=== PATIENT | male | born 1970 | race African-American/Black ===

== ENCOUNTER 2020-10-31 22:29 | Emergency (ER) | payer OTHER ==
[2020-10-31 22:34] VITALS: BP 137/76; PULSE 99; TEMP 98; BMI 30.1
== END 2020-11-01 00:18 | disposition home or self-care (01) ==
LOC: JERFT 22:29
DX: M79.675 Pain in left toe(s) (principal)
CPT/HCPCS: 73660-TC-LT-FY; 99283-25

== ENCOUNTER 2021-03-19 12:45 | Emergency (ER) | payer OTHER ==
[2021-03-19 12:53] VITALS: TEMP 97.8; BMI 30.8
[2021-03-19] MEDS ORDERED: SODIUM CHLORIDE 0.9% 500 ML INFUS.BAG IV ONE (13:59)
[2021-03-19] MEDS ORDERED: ACETAMINOPHEN 1000 MG/100 ML VIAL IVPB ONE (14:00)
[2021-03-19] MEDS ORDERED: ACETAMINOPHEN INJECTION 100 ML IVPB ONE (14:04)
[2021-03-19] MEDS ORDERED: ONDANSETRON 4 MG/2 ML VIAL IVPUSH ONE (14:16)
[2021-03-19] MEDS ORDERED: ONDANSETRON 4 MG/2 ML VIAL ONE (14:20)
[2021-03-19 14:54] LABS: BASO % 0.8 % (0-2.0); EOS % 0.6 % (0-4.5); HEMATOCRIT 40.9 % (35.4-49); HEMOGLOBIN 14.6 GM/dL (11.7-16.9); LYMPH % 23.6 % (8-40); MCH 30.8 pg (25.7-33.7); MCHC 35.8 g/dl (32.0-35.9); MEAN CELL VOLUME 86.1 fl (80-96); MEAN PLT VOLUME 7.8 fl (7.5-11.1); MONO % 9.5 % (3.8-10.2); NEUT % 65.5 % (42.8-82.8); PLATELET COUNT 198 10^3/uL (134-434); RBC 4.75 M/mm3 (4.00-5.60); WHITE BLOOD COUNT 8.2 K/mm3 (4.0-10.0)
[2021-03-19 14:55] LABS: INR 1.02 (0.83-1.09); PROTHROMBIN TIME (PATIENT) 11.9 SEC (9.7-13.0)
[2021-03-19 14:58] LABS: ACTIVATED PTT 26.8 SECONDS (25.2-36.5)
[2021-03-19 15:08] LABS: CHLORIDE 107 mmol/L (98-107); SODIUM 141 mmol/L (136-145)
[2021-03-19 15:11] LABS: ALBUMIN 3.8 g/dl (3.4-5.0); ANION GAP 10 MMOL/L (8-16); BLOOD UREA NITROGEN 18.4 mg/dL (7-18); CALCIUM 8.8 mg/dL (8.5-10.1); CO2 24 mmol/L (21-32); GLUCOSE,RANDOM 95 mg/dL (74-106)
[2021-03-19 15:14] LABS: SGOT/AST 30 U/L (15-37); SGPT/ALT 39 U/L (13-61)
[2021-03-19 15:16] LABS: BILIRUBIN,TOTAL 0.6 mg/dL (0.2-1); TOT PROT 7.3 g/dl (6.4-8.2)
[2021-03-19 15:17] LABS: ALK PHOS 86 U/L (45-117)
[2021-03-19] MEDS ORDERED: POTASSIUM CHLORIDE TABS 20 MEQ TABLET.ER (FP) PO ONE ×2 (15:51→16:19)
[2021-03-19 16:47] VITALS: BP 122/80; PULSE 83
== END 2021-03-19 16:46 | disposition home or self-care (01) ==
LOC: JER 12:45
PROC: 3E033GC Introduction of Other Therapeutic Substance into Peripheral Vein, Percutaneous Approach (ICD-10-PCS; principal; 2021-03-19)
DX: J06.9 Acute upper respiratory infection, unspecified (principal); R05.9 Cough, unspecified
CPT/HCPCS: 36415; 71045-TC-FY; 71275-TC; 80053; 82550; 82553; 84484; 85025; 85379; 85610; 85730; 93005; 93010; 99285-25; C9803; J0131; Q9967; U0003; U0005

== ENCOUNTER 2022-02-09 15:39 | Emergency (ER) | payer OTHER ==
[2022-02-09 15:52] VITALS: BP 159/90; PULSE 75; RESP 16; TEMP 97.8; BMI 31.1
[2022-02-09 19:46] LABS: BASO % 0.6 % (0-2.0); EOS % 4.1 % (0-4.5); HEMATOCRIT 38.3 % (35.4-49); HEMOGLOBIN 13.7 GM/dL (11.7-16.9); LYMPH % 40.8 % (8-40); MCH 30.7 pg (25.7-33.7); MCHC 35.6 g/dl (32.0-35.9); MEAN CELL VOLUME 86.1 fl (80-96); MEAN PLT VOLUME 7.4 fl (7.5-11.1); MONO % 6.9 % (3.8-10.2); NEUT % 47.6 % (42.8-82.8); PLATELET COUNT 297 10^3/uL (134-434); RBC 4.45 M/mm3 (4.00-5.60); RDW 14.3 % (11.9-15.9); WHITE BLOOD COUNT 7.2 K/mm3 (4.0-10.0)
[2022-02-09 20:03] LABS: CALCIUM 8.8 mg/dL (8.5-10.1)
[2022-02-09 20:04] LABS: ALBUMIN 3.6 g/dl (3.4-5.0); BLOOD UREA NITROGEN 17.2 mg/dL (7-18)
[2022-02-09 20:07] LABS: CREATININE 1.2 mg/dL (0.55-1.3)
[2022-02-09 20:08] LABS: TOT PROT 6.3 g/dl (6.4-8.2)
[2022-02-09 20:09] LABS: BILIRUBIN,TOTAL 0.5 mg/dL (0.2-1)
[2022-02-09] MEDS ORDERED: KETOROLAC TROMETHAMINE 30 MG/1 ML VIAL IVPUSH ONE (20:16)
[2022-02-09] MEDS ORDERED: KETOROLAC TROMETHAMINE 30 MG/1 ML VIAL ONE (20:26)
== END 2022-02-09 20:36 | disposition home or self-care (01) ==
LOC: JER 15:39
PROC: 3E033GC Introduction of Other Therapeutic Substance into Peripheral Vein, Percutaneous Approach (ICD-10-PCS; principal; 2022-02-09)
DX: R07.89 Other chest pain (principal)
CPT/HCPCS: 36415; 71046-TC-FY; 80053; 84484; 85025; 93005; 93010; 99285-25

== ENCOUNTER 2023-06-24 13:22 | Observation (INO) | payer OTHER ==
[2023-06-24 13:40] VITALS: BP 150/97; PULSE 71; RESP 20; TEMP 98.4; BMI 28.8
[2023-06-24] MEDS ORDERED: ACETAMINOPHEN INJECTION 100 ML IVPB ONE (14:33)
[2023-06-24] MEDS: ACETAMINOPHEN 1000 MG/100 ML BAG IVPB ONE (14:45)
[2023-06-24 15:06] LABS: POTASSIUM 3.9 mmol/L (3.5-5.1)
[2023-06-24 15:07] LABS: BASO % 0.4 % (0-2.0); EOS % 1.7 % (0-4.5); HEMATOCRIT 43.9 % (35.4-49); HEMOGLOBIN 15.5 GM/dL (11.7-16.9); MCHC 35.4 g/dl (32.0-35.9); MEAN CELL VOLUME 84.8 fl (80-96); MEAN PLT VOLUME 7.2 fl (7.5-11.1); MONO % 7.5 % (3.8-10.2); NEUT % 54.4 % (42.8-82.8); PLATELET COUNT 296 10^3/uL (134-434); RBC 5.18 M/mm3 (4.00-5.60); RDW 14.6 % (11.9-15.9); WHITE BLOOD COUNT 7.3 K/mm3 (4.0-10.0)
[2023-06-24 15:08] LABS: BLOOD UREA NITROGEN 15.6 mg/dL (7-18); CALCIUM 9.7 mg/dL (8.5-10.1)
[2023-06-24 15:13] LABS: BILIRUBIN,TOTAL 0.9 mg/dL (0.2-1); TOT PROT 7.4 g/dl (6.4-8.2)
[2023-06-24 15:14] LABS: INR 1.06 (0.83-1.09); PROTHROMBIN TIME (PATIENT) 12.3 SEC (9.7-13.0)
[2023-06-24 15:17] LABS: ACTIVATED PTT 30.7 SECONDS (25.2-36.5)
== END 2023-06-24 22:55 | disposition left against medical advice (07) ==
LOC: JER 13:22 → JERBED 16:09
PROVIDERS: ADMIT Internal Medicine; ATTEND Internal Medicine
PROC: 3E033NZ Introduction of Analgesics, Hypnotics, Sedatives into Peripheral Vein, Percutaneous Approach (ICD-10-PCS; principal; 2023-06-24)
DX: R07.9 Chest pain, unspecified (principal); R61 Generalized hyperhidrosis; R11.0 Nausea; R42 Dizziness and giddiness; Z87.891 Personal history of nicotine dependence
CPT/HCPCS: 36415; 71046-TC-FY; 80053; 82962; 83690; 83880; 84484; 85025; 85610; 85730; 86850; 86900; 86901; 93005; 93010; 96374; 99285-25; G0378; J0131